=== PATIENT | male | born 1995 | race Hispanic/Latino ===

== ENCOUNTER 2022-10-24 20:11 | Emergency (ER) | payer OTHER ==
[~2022-10-24] VITALS: Ht 162.6 cm; Wt 129.3 kg
[2022-10-24] MEDS ORDERED: DEXAMETHASONE SOD PHOSPHATE 4 MG/ML 1ML VIAL IM ONE (22:30)
[2022-10-24] MEDS ORDERED: CEFTRIAXONE 1G VIAL IM ONE (22:30)
[2022-10-24 22:47] VITALS: BP 120/71
[2022-10-24] MEDS ORDERED: CEPH500C2 PO (22:49)
[2022-10-24] MEDS ORDERED: HYDR28GE TP (22:49)
[2022-10-24] MEDS ORDERED: DIPH-1242 PO (22:49)
== END 2022-10-24 23:32 | disposition home or self-care (01) ==
LOC: EDH 20:11
DX: L25.9 Unspecified contact dermatitis, unspecified cause (principal); L03.113 Cellulitis of right upper limb
CPT/HCPCS: 99284; 96372 ×2; J1100; J0696